=== PATIENT | male | born 1945 | race Caucasian/White ===

== ENCOUNTER 2018-07-30 12:13 | Inpatient (IN) | payer OTHER ==
[2018-07-30 14:01] LABS: ADD MAN DIFF? NO
[2018-07-30 14:07] LABS: WHITE BLOOD COUNT 11.8 10^3/ul (4.8-10.8)
[2018-07-30 14:07] LABS: BASOPHILS % 0.2 % (0.0-2.0); HEMATOCRIT 33.3 % (42.0-52.0); HEMOGLOBIN 10.7 g/dl (14.0-18.0); LYMPHOCYTES % 8.2 % (15.0-51.0); MEAN CORPUSCULAR HGB CONC 32.1 g/dl (32.0-37.0); MEAN CORPUSCULAR VOLUME 96.5 fl (82.0-101.0); MEAN PLATELET VOLUME 11.3 fl (7.4-10.4); MONOCYTES % 8.2 % (0.0-11.0); NEUTROPHIL # 9.8 10^3/ul (1.6-7.5); PLATELET COUNT 140 10^3/UL (140-415); RED BLOOD COUNT 3.45 10^6/ul (4.70-6.10); RED CELL DISTRIBUTION WIDTH 14.9 % (11.5-14.5)
[2018-07-30] MEDS: IPRATROPIUM (NEB) 0.5 MG/2.5 ML AMP HHN (14:12)
[2018-07-30] MEDS: LEVALBUTEROL (NEB) 1.25 MG/0.5 ML AMP HHN (14:12)
[2018-07-30] MEDS: ACETAMINOPHEN 325 MG TAB PO (14:23)
[2018-07-30] MEDS: SODIUM CHLORIDE 0.9% 1L BAG IV* (14:23)
[2018-07-30 14:28] LABS: PROTIME 13.3 Sec (11.9-14.9)
[2018-07-30 14:29] LABS: PARTIAL THROMBOPLASTIN TIME 31.3 Sec (23.0-35.0)
[2018-07-30 14:30] LABS: ANION GAP 17 (8-16); BLOOD UREA NITROGEN 47 mg/dl (7-20); CALCIUM 8.9 mg/dl (8.4-10.2); CARBON DIOXIDE 21 mmol/L (21-31); CHLORIDE 107 mmol/L (97-110); GLUCOSE 87 mg/dl (70-220); POTASSIUM 4.5 mmol/L (3.5-5.1); SODIUM 140 mmol/L (135-144)
[2018-07-30 14:31] LABS: LACTIC ACID 0.8 mmol/L (0.5-2.0)
[2018-07-30 14:46] LABS: TROPONIN-I 0.166 ng/ml (0.000-0.120)
[2018-07-30 15:17] LABS: ADD UMIC YES; UR ASCORBIC ACID 20 mg/dL (NEGATIVE); UR BILIRUBIN (Dip) NEGATIVE (NEGATIVE); UR BLOOD (Dip) NEGATIVE (NEGATIVE); UR CLARITY CLEAR (CLEAR); UR COLOR YELLOW (YELLOW); UR GLUCOSE (Dip) NEGATIVE (NEGATIVE); UR KETONES (Dip) TRACE mg/dL (NEGATIVE); UR LEUKOCYTE ESTERASE (Dip) NEGATIVE Leu/ul (NEGATIVE); UR NITRITE (Dip) NEGATIVE (NEGATIVE); UR RBC 3 /HPF (0-5); UR SPECIFIC GRAVITY (Dip) 1.013 (1.003-1.030); UR TOTAL PROTEIN (Dip) 3+ mg/dl (NEGATIVE); UR UROBILINOGEN (Dip) NEGATIVE (NEGATIVE); UR WBC 0 /HPF (0-5)
[2018-07-30] MEDS: ASPIRIN 81 MG TAB PO (16:15)
[2018-07-30] MEDS: PIPER-TAZO 2.25 GM (PMX) 50 ML IVPB (16:15)
[2018-07-30] MEDS ORDERED: ONDANSETRON 4 MG INJ IV (17:30)
[2018-07-30] MEDS ORDERED: NACL 0.9% 3 ML SYG IV (17:30)
[2018-07-30] MEDS: predniSONE 20 MG TAB PO (20:43)
[2018-07-30] MEDS: DOXAZOSIN 4 MG TAB PO (20:44)
[2018-07-30] MEDS: ALBUTEROL/IPRATROPIUM (NEB) 3 ML AMP NEB (22:46)
[2018-07-30 23:02] LABS: LACTIC ACID < 0.5 mmol/L (0.5-2.0)
[2018-07-31 05:25] LABS: ADD MAN DIFF? NO
[2018-07-31 05:32] LABS: WHITE BLOOD COUNT 7.2 10^3/ul (4.8-10.8)
[2018-07-31 05:32] LABS: ABNORMAL IP MESSAGE 1; BASOPHILS % 0.1 % (0.0-2.0); HEMATOCRIT 30.9 % (42.0-52.0); HEMOGLOBIN 9.8 g/dl (14.0-18.0); LYMPHOCYTES # 0.3 10^3/ul (0.8-2.9); LYMPHOCYTES % 4.2 % (15.0-51.0); MEAN CORPUSCULAR HEMOGLOBIN 31.1 pg (29.0-33.0); MEAN CORPUSCULAR HGB CONC 31.7 g/dl (32.0-37.0); MEAN CORPUSCULAR VOLUME 98.1 fl (82.0-101.0); MEAN PLATELET VOLUME 11.4 fl (7.4-10.4); MONOCYTE # 0.1 10^3/ul (0.3-0.9); MONOCYTES % 1.5 % (0.0-11.0); NEUTROPHIL # 6.8 10^3/ul (1.6-7.5); NEUTROPHILS % 93.8 % (39.0-77.0); PLATELET COUNT 126 10^3/UL (140-415); POSITIVE DIFF @See below; RED BLOOD COUNT 3.15 10^6/ul (4.70-6.10)
[2018-07-31 06:14] LABS: ALANINE AMINOTRANSFERASE 32 IU/L (13-69); ALBUMIN 2.7 g/dl (3.3-4.9); ALBUMIN/GLOBULIN RATIO 0.96; ALKALINE PHOSPHATASE 28 IU/L (42-121); ANION GAP 13 (8-16); ASPARTATE AMINO TRANSFERASE 32 IU/L (15-46); BILIRUBIN,INDIRECT 0.1 mg/dl (0-1.1); BILIRUBIN,TOTAL 0.1 mg/dl (0.2-1.3); BLOOD UREA NITROGEN 53 mg/dl (7-20); CALCIUM 8.3 mg/dl (8.4-10.2); CARBON DIOXIDE 21 mmol/L (21-31); CHLORIDE 109 mmol/L (97-110); CHOL/HDL RATIO 2.3 RATIO; CHOLESTEROL 110 mg/dl (100-200); CREATININE 4.04 mg/dl (0.61-1.24); GLUCOSE 158 mg/dl (70-220); HDL CHOLESTEROL 47 mg/dl (31-75); LDL CHOLESTEROL,CALCULATED 49 mg/dl; PHOSPHORUS 5.8 mg/dl (2.5-4.9); POTASSIUM 5.1 mmol/L (3.5-5.1); SODIUM 138 mmol/L (135-144); TOTAL PROTEIN 5.5 g/dl (6.1-8.1); TRIGLYCERIDES 69 mg/dl (0-149)
[2018-07-31] MEDS: LEVOTHYROXINE 150 MCG TAB PO (06:39)
[2018-07-31] MEDS: AZITHROMYCIN 250 MG TAB PO (08:45)
[2018-07-31] MEDS: PANTOPRAZOLE SODIUM 20 MG TABEC PO (08:45)
[2018-07-31] MEDS: FINASTERIDE 5 MG TAB PO (08:45)
[2018-07-31] MEDS: FLUTICASONE/VILANTEROL 200-25 INH DEVICE INH (08:46)
[2018-07-31] MEDS: AMLODIPINE 10 MG TAB PO (08:46)
[2018-07-31] MEDS: predniSONE 20 MG TAB PO (08:46)
[2018-07-31] MEDS: ALLOPURINOL 300 MG TAB PO (08:46)
[2018-07-31] MEDS: ENOXAPARIN 30 MG/0.3 ML SYG SC (08:56)
[2018-07-31 11:47] LABS: HEMOGLOBIN A1C 5.3 % (0-5.9)
[2018-07-31 15:03] LABS: ADD UMIC YES; UR ASCORBIC ACID 20 mg/dL (NEGATIVE); UR BACTERIA FEW /HPF (NONE SEEN); UR BILIRUBIN (Dip) NEGATIVE (NEGATIVE); UR BLOOD (Dip) NEGATIVE (NEGATIVE); UR CLARITY CLEAR (CLEAR); UR COLOR YELLOW (YELLOW); UR GLUCOSE (Dip) NEGATIVE (NEGATIVE); UR KETONES (Dip) NEGATIVE (NEGATIVE); UR LEUKOCYTE ESTERASE (Dip) NEGATIVE Leu/ul (NEGATIVE); UR NITRITE (Dip) NEGATIVE (NEGATIVE); UR RBC 2 /HPF (0-5); UR SPECIFIC GRAVITY (Dip) 1.014 (1.003-1.030); UR TOTAL PROTEIN (Dip) 2+ mg/dl (NEGATIVE); UR UROBILINOGEN (Dip) NEGATIVE (NEGATIVE); UR WBC 1 /HPF (0-5)
[2018-07-31 15:28] LABS: CREATININE,URINE RANDOM 121.72 mg/dl (20-370)
[2018-07-31 15:28] LABS: SODIUM,URINE RANDOM 29 mmol/L (30-90)
[2018-07-31] MEDS ORDERED: ALBUTEROL/IPRATROPIUM (NEB) 3 ML AMP (19:58)
[2018-07-31] MEDS: ALBUTEROL/IPRATROPIUM (NEB) 3 ML AMP NEB (20:05)
[2018-07-31] MEDS: DOXAZOSIN 4 MG TAB PO (20:36)
[2018-08-01] MEDS: ALBUTEROL/IPRATROPIUM (NEB) 3 ML AMP NEB ×6 (00:13→20:18)
[2018-08-01 05:37] LABS: ADD MAN DIFF? NO
[2018-08-01 05:46] LABS: HEMATOCRIT 27.8 % (42.0-52.0); HEMOGLOBIN 8.9 g/dl (14.0-18.0); LYMPHOCYTES # 0.7 10^3/ul (0.8-2.9); LYMPHOCYTES % 11.6 % (15.0-51.0); MEAN CORPUSCULAR VOLUME 96.9 fl (82.0-101.0); MEAN PLATELET VOLUME 11.8 fl (7.4-10.4); MONOCYTE # 0.5 10^3/ul (0.3-0.9); MONOCYTES % 7.5 % (0.0-11.0); NEUTROPHIL # 5.1 10^3/ul (1.6-7.5); NEUTROPHILS % 80.6 % (39.0-77.0); PLATELET COUNT 124 10^3/UL (140-415); RED BLOOD COUNT 2.87 10^6/ul (4.70-6.10); RED CELL DISTRIBUTION WIDTH 14.6 % (11.5-14.5)
[2018-08-01 05:46] LABS: WHITE BLOOD COUNT 6.3 10^3/ul (4.8-10.8)
[2018-08-01 06:22] LABS: ANION GAP 13 (8-16); BLOOD UREA NITROGEN 71 mg/dl (7-20); CALCIUM 8.1 mg/dl (8.4-10.2); CARBON DIOXIDE 21 mmol/L (21-31); CHLORIDE 107 mmol/L (97-110); CREATININE 3.94 mg/dl (0.61-1.24); GLUCOSE 111 mg/dl (70-220); PHOSPHORUS 5.1 mg/dl (2.5-4.9); SODIUM 136 mmol/L (135-144)
[2018-08-01] MEDS: LEVOTHYROXINE 150 MCG TAB PO (06:31)
[2018-08-01] MEDS: SOD CHLORIDE 0.9% 1,000 ML IV (08:45)
[2018-08-01] MEDS: FINASTERIDE 5 MG TAB PO (08:47)
[2018-08-01] MEDS: PANTOPRAZOLE SODIUM 20 MG TABEC PO (08:47)
[2018-08-01] MEDS: AZITHROMYCIN 250 MG TAB PO (08:48)
[2018-08-01] MEDS: AMLODIPINE 10 MG TAB PO (08:48)
[2018-08-01] MEDS: ALLOPURINOL 300 MG TAB PO (08:48)
[2018-08-01] MEDS: predniSONE 20 MG TAB PO (08:48)
[2018-08-01] MEDS: ENOXAPARIN 30 MG/0.3 ML SYG SC (08:58)
[2018-08-01] MEDS: ACETAMINOPHEN 325 MG TAB PO (09:03)
[2018-08-01] MEDS: FLUTICASONE/VILANTEROL 200-25 INH DEVICE INH (09:03)
[2018-08-01] MEDS: FENOFIBRATE 145 MG TAB PO (14:14)
[2018-08-01] MEDS: LEVOFLOXACIN 500 MG TAB PO (14:14)
[2018-08-01 14:18] LABS: CREATINE KINASE 106 IU/L (23-200)
[2018-08-01 14:30] LABS: CK-MB 3.14 ng/ml (0.0-2.4); TROPONIN-I 0.039 ng/ml (0.000-0.120)
[2018-08-01 15:21] LABS: B-TYPE NATRIURETIC PEPTIDE 5100 PG/ML (0-125)
[2018-08-01 17:06] LABS: CREATININE, RANDOM URINE 117 mg/dL (20-320); MICROALBUMIN 137.9 mg/dL; MICROALBUMIN/CREATININE RATIO 1179 (<30)
[2018-08-01] MEDS: DOXAZOSIN 4 MG TAB PO (22:28)
[2018-08-02] MEDS: ALBUTEROL/IPRATROPIUM (NEB) 3 ML AMP NEB ×6 (01:32→20:29)
[2018-08-02 05:39] LABS: ADD MAN DIFF? NO
[2018-08-02 05:47] LABS: WHITE BLOOD COUNT 5.7 10^3/ul (4.8-10.8)
[2018-08-02 05:47] LABS: HEMATOCRIT 27.2 % (42.0-52.0); HEMOGLOBIN 8.8 g/dl (14.0-18.0); LYMPHOCYTES # 0.6 10^3/ul (0.8-2.9); LYMPHOCYTES % 10.6 % (15.0-51.0); MEAN CORPUSCULAR HEMOGLOBIN 31.2 pg (29.0-33.0); MEAN CORPUSCULAR HGB CONC 32.4 g/dl (32.0-37.0); MEAN CORPUSCULAR VOLUME 96.5 fl (82.0-101.0); MEAN PLATELET VOLUME 12.2 fl (7.4-10.4); MONOCYTE # 0.3 10^3/ul (0.3-0.9); NEUTROPHIL # 4.7 10^3/ul (1.6-7.5); PLATELET COUNT 127 10^3/UL (140-415); RED BLOOD COUNT 2.82 10^6/ul (4.70-6.10); RED CELL DISTRIBUTION WIDTH 14.6 % (11.5-14.5)
[2018-08-02] MEDS: LEVOFLOXACIN 250 MG TAB PO (05:47)
[2018-08-02] MEDS: LEVOTHYROXINE 125 MCG TAB PO (05:47)
[2018-08-02 06:03] LABS: ANION GAP 14 (8-16); BLOOD UREA NITROGEN 71 mg/dl (7-20); CALCIUM 8.3 mg/dl (8.4-10.2); CARBON DIOXIDE 19 mmol/L (21-31); CHLORIDE 107 mmol/L (97-110); CREATININE 3.78 mg/dl (0.61-1.24); GLUCOSE 114 mg/dl (70-220); MAGNESIUM 1.8 mg/dl (1.7-2.5); POTASSIUM 4.8 mmol/L (3.5-5.1); SODIUM 135 mmol/L (135-144)
[2018-08-02 06:04] LABS: CREATINE KINASE 108 IU/L (23-200)
[2018-08-02 06:15] LABS: CK INDEX 3.4; CK-MB 3.68 ng/ml (0.0-2.4); TROPONIN-I 0.046 ng/ml (0.000-0.120)
[2018-08-02] MEDS: FENOFIBRATE 145 MG TAB PO (08:07)
[2018-08-02] MEDS: ALLOPURINOL 300 MG TAB PO (08:07)
[2018-08-02] MEDS: FINASTERIDE 5 MG TAB PO (08:07)
[2018-08-02] MEDS: FLUTICASONE/VILANTEROL 200-25 INH DEVICE INH (08:08)
[2018-08-02] MEDS: predniSONE 20 MG TAB PO (08:08)
[2018-08-02] MEDS: AMLODIPINE 10 MG TAB PO (08:08)
[2018-08-02] MEDS: ASPIRIN 325 MG TAB PO (08:08)
[2018-08-02] MEDS: PANTOPRAZOLE SODIUM 20 MG TABEC PO (08:08)
[2018-08-02] MEDS: ENOXAPARIN 30 MG/0.3 ML SYG SC (08:13)
[2018-08-02] MEDS: FUROSEMIDE 40 MG INJ IV (12:34)
[2018-08-02] MEDS: ACETAMINOPHEN 325 MG TAB PO (13:37)
[2018-08-02] MEDS: METHYLPREDNISOLONE 40 MG INJ IV ×2 (15:06→21:17)
[2018-08-02] MEDS: DOXAZOSIN 4 MG TAB PO (21:16)
[2018-08-02] MEDS ORDERED: DIGOXIN 500 MCG INJ IV (23:00)
[2018-08-02] MEDS: METOPROLOL 5 MG INJ IV (23:46)
[2018-08-02] MEDS: METOPROLOL 25 MG TAB PO (23:51)
[2018-08-02] MEDS: DIGOXIN 500 MCG INJ IV (23:54)
[2018-08-03] MEDS: METOPROLOL 5 MG INJ IV ×3 (00:25→10:02)
[2018-08-03] MEDS: ALBUTEROL/IPRATROPIUM (NEB) 3 ML AMP NEB ×5 (00:30→20:21)
[2018-08-03] MEDS: LEVOFLOXACIN 250MG/D5W (PMX) 50 ML IVPB (05:37)
[2018-08-03 05:43] LABS: ADD MAN DIFF? NO
[2018-08-03 05:46] LABS: ABNORMAL IP MESSAGE 1; HEMATOCRIT 29.5 % (42.0-52.0); HEMOGLOBIN 9.5 g/dl (14.0-18.0); LYMPHOCYTES # 0.5 10^3/ul (0.8-2.9); LYMPHOCYTES % 10.5 % (15.0-51.0); MEAN CORPUSCULAR HGB CONC 32.2 g/dl (32.0-37.0); MEAN CORPUSCULAR VOLUME 96.4 fl (82.0-101.0); MEAN PLATELET VOLUME 11.3 fl (7.4-10.4); MONOCYTE # 0.2 10^3/ul (0.3-0.9); MONOCYTES % 4.5 % (0.0-11.0); NEUTROPHIL # 3.8 10^3/ul (1.6-7.5); NEUTROPHILS % 84.1 % (39.0-77.0); PLATELET COUNT 138 10^3/UL (140-415); POSITIVE DIFF @See below; RED BLOOD COUNT 3.06 10^6/ul (4.70-6.10); RED CELL DISTRIBUTION WIDTH 14.7 % (11.5-14.5)
[2018-08-03 05:46] LABS: WHITE BLOOD COUNT 4.5 10^3/ul (4.8-10.8)
[2018-08-03] MEDS: METHYLPREDNISOLONE 40 MG INJ IV ×3 (05:51→22:18)
[2018-08-03 06:08] LABS: IRON 72 ug/dl (35-150)
[2018-08-03 06:15] LABS: ANION GAP 15 (8-16); BLOOD UREA NITROGEN 81 mg/dl (7-20); CARBON DIOXIDE 18 mmol/L (21-31); CHLORIDE 110 mmol/L (97-110); CREATININE 3.94 mg/dl (0.61-1.24); GLUCOSE 106 mg/dl (70-220); MAGNESIUM 1.7 mg/dl (1.7-2.5); PHOSPHORUS 5.5 mg/dl (2.5-4.9); POTASSIUM 5.6 mmol/L (3.5-5.1); SODIUM 137 mmol/L (135-144)
[2018-08-03 06:17] LABS: % IRON SATURATION 25 % SAT (22-52); TOTAL IRON BINDING CAPACITY 291 ug/dl (241-421)
[2018-08-03] MEDS: LEVOTHYROXINE 125 MCG TAB PO (06:33)
[2018-08-03] MEDS: FLUTICASONE/VILANTEROL 200-25 INH DEVICE INH (08:36)
[2018-08-03] MEDS: AMLODIPINE 10 MG TAB PO (08:41)
[2018-08-03] MEDS: FENOFIBRATE 145 MG TAB PO (08:41)
[2018-08-03] MEDS: ALLOPURINOL 300 MG TAB PO (08:41)
[2018-08-03] MEDS: FINASTERIDE 5 MG TAB PO (08:41)
[2018-08-03] MEDS: FUROSEMIDE 40 MG INJ IV (08:42)
[2018-08-03] MEDS: ASPIRIN (EC) 325 MG TAB PO (08:42)
[2018-08-03] MEDS: METOPROLOL 25 MG TAB PO (08:42)
[2018-08-03] MEDS: PANTOPRAZOLE SODIUM 20 MG TABEC PO (08:42)
[2018-08-03] MEDS: ENOXAPARIN 30 MG/0.3 ML SYG SC (08:55)
[2018-08-03] MEDS ORDERED: ASPIRIN 325 MG TAB PO (09:00)
[2018-08-03] MEDS ORDERED: DILTIAZEM 25 MG INJ IV (13:00)
[2018-08-03] MEDS: DIGOXIN 500 MCG INJ IV (13:51)
[2018-08-03] MEDS: NA BICARBONATE 650 MG TAB PO ×2 (13:51→22:18)
[2018-08-03 15:20] LABS: POTASSIUM 5.2 mmol/L (3.5-5.1)
[2018-08-03] MEDS: DOXAZOSIN 4 MG TAB PO (21:05)
[2018-08-03] MEDS: METOPROLOL 50 MG TAB PO (21:07)
[2018-08-04] MEDS: ALBUTEROL/IPRATROPIUM (NEB) 3 ML AMP NEB ×4 (03:18→20:13)
[2018-08-04] MEDS: NA BICARBONATE 650 MG TAB PO ×3 (05:53→22:31)
[2018-08-04] MEDS: METHYLPREDNISOLONE 40 MG INJ IV ×2 (05:55→22:31)
[2018-08-04 06:11] LABS: ADD MAN DIFF? NO
[2018-08-04 06:17] LABS: ABNORMAL IP MESSAGE 1; HEMATOCRIT 29.6 % (42.0-52.0); HEMOGLOBIN 9.7 g/dl (14.0-18.0); LYMPHOCYTES # 0.5 10^3/ul (0.8-2.9); LYMPHOCYTES % 7.6 % (15.0-51.0); MEAN CORPUSCULAR HEMOGLOBIN 31.3 pg (29.0-33.0); MEAN CORPUSCULAR HGB CONC 32.8 g/dl (32.0-37.0); MEAN CORPUSCULAR VOLUME 95.5 fl (82.0-101.0); MEAN PLATELET VOLUME 11.4 fl (7.4-10.4); MONOCYTE # 0.2 10^3/ul (0.3-0.9); MONOCYTES % 2.7 % (0.0-11.0); NEUTROPHIL # 5.5 10^3/ul (1.6-7.5); NEUTROPHILS % 88.4 % (39.0-77.0); PLATELET COUNT 144 10^3/UL (140-415); POSITIVE DIFF @See below; RED CELL DISTRIBUTION WIDTH 14.5 % (11.5-14.5)
[2018-08-04 06:17] LABS: WHITE BLOOD COUNT 6.2 10^3/ul (4.8-10.8)
[2018-08-04] MEDS: LEVOFLOXACIN 250MG/D5W (PMX) 50 ML IVPB (06:30)
[2018-08-04] MEDS: LEVOTHYROXINE 125 MCG TAB PO (06:33)
[2018-08-04 06:44] LABS: ANION GAP 17 (8-16); BLOOD UREA NITROGEN 98 mg/dl (7-20); CALCIUM 8.9 mg/dl (8.4-10.2); CARBON DIOXIDE 19 mmol/L (21-31); CHLORIDE 107 mmol/L (97-110); CREATININE 4.22 mg/dl (0.61-1.24); GLUCOSE 122 mg/dl (70-220); MAGNESIUM 1.7 mg/dl (1.7-2.5); PHOSPHORUS 5.8 mg/dl (2.5-4.9); POTASSIUM 5.9 mmol/L (3.5-5.1); SODIUM 137 mmol/L (135-144)
[2018-08-04] MEDS: METOPROLOL 50 MG TAB PO (08:11)
[2018-08-04] MEDS: PANTOPRAZOLE SODIUM 20 MG TABEC PO (08:11)
[2018-08-04] MEDS: FINASTERIDE 5 MG TAB PO (08:11)
[2018-08-04] MEDS: ALLOPURINOL 300 MG TAB PO (08:11)
[2018-08-04] MEDS: AMLODIPINE 10 MG TAB PO (08:12)
[2018-08-04] MEDS: ASPIRIN (EC) 325 MG TAB PO (08:12)
[2018-08-04] MEDS: FUROSEMIDE 40 MG INJ IV (08:12)
[2018-08-04] MEDS: FLUTICASONE/VILANTEROL 200-25 INH DEVICE INH (08:13)
[2018-08-04] MEDS: FENOFIBRATE 145 MG TAB PO (08:13)
[2018-08-04] MEDS: ENOXAPARIN 80 MG/0.8 ML SYG SC (08:20)
[2018-08-04] MEDS: TIOTROPIUM 18 MCG CAPSULE INHA DEV INH (11:42)
[2018-08-04] MEDS: DIGOXIN 0.25 MG TAB PO (11:42)
[2018-08-04] MEDS: CALCIUM CARBONATE 750 MG CHEW TAB PO ×2 (11:42→18:04)
[2018-08-04] MEDS: NA POLYST SULFON 15 GM/60 ML BTL PO (11:43)
[2018-08-04] MEDS: CITRIC ACID/NA CITRATE 30 ML CUP PO ×2 (13:04→22:30)
[2018-08-04 14:02] LABS: ANION GAP 17 (8-16); BLOOD UREA NITROGEN 100 mg/dl (7-20); CALCIUM 8.7 mg/dl (8.4-10.2); CARBON DIOXIDE 17 mmol/L (21-31); CHLORIDE 107 mmol/L (97-110); CREATININE 4.24 mg/dl (0.61-1.24); GLUCOSE 220 mg/dl (70-220); SODIUM 136 mmol/L (135-144)
[2018-08-04] MEDS: MONTELUKAST 10 MG TAB PO (22:31)
[2018-08-04] MEDS: METOPROLOL 100 MG TAB PO (22:32)
[2018-08-04] MEDS: DOXAZOSIN 4 MG TAB PO (22:32)
[2018-08-05] MEDS: ALBUTEROL/IPRATROPIUM (NEB) 3 ML AMP NEB ×4 (01:01→19:43)
[2018-08-05] MEDS: LEVOFLOXACIN 250MG/D5W (PMX) 50 ML IVPB (06:19)
[2018-08-05] MEDS: LEVOTHYROXINE 112 MCG TAB PO (06:19)
[2018-08-05] MEDS: CITRIC ACID/NA CITRATE 30 ML CUP PO ×3 (06:19→21:17)
[2018-08-05] MEDS: NA BICARBONATE 650 MG TAB PO ×3 (06:19→21:17)
[2018-08-05] MEDS: PANTOPRAZOLE SODIUM 20 MG TABEC PO (06:19)
[2018-08-05 06:28] LABS: ANION GAP 15 (8-16); BLOOD UREA NITROGEN 112 mg/dl (7-20); CALCIUM 8.2 mg/dl (8.4-10.2); CARBON DIOXIDE 21 mmol/L (21-31); CHLORIDE 107 mmol/L (97-110); CREATININE 4.78 mg/dl (0.61-1.24); GLUCOSE 180 mg/dl (70-220); POTASSIUM 5.3 mmol/L (3.5-5.1); SODIUM 138 mmol/L (135-144)
[2018-08-05] MEDS: METHYLPREDNISOLONE 40 MG INJ IV ×2 (07:55→21:17)
[2018-08-05] MEDS: ALLOPURINOL 300 MG TAB PO (07:55)
[2018-08-05] MEDS: CALCIUM CARBONATE 750 MG CHEW TAB PO ×3 (07:55→17:16)
[2018-08-05] MEDS: ASPIRIN (EC) 325 MG TAB PO (07:55)
[2018-08-05] MEDS: FUROSEMIDE 40 MG INJ IV (07:55)
[2018-08-05] MEDS: FENOFIBRATE 145 MG TAB PO (07:55)
[2018-08-05] MEDS: FINASTERIDE 5 MG TAB PO (07:55)
[2018-08-05] MEDS: FLUTICASONE/VILANTEROL 200-25 INH DEVICE INH (07:56)
[2018-08-05] MEDS: AMLODIPINE 10 MG TAB PO (07:56)
[2018-08-05] MEDS: METOPROLOL 100 MG TAB PO ×2 (07:56→21:18)
[2018-08-05] MEDS: TIOTROPIUM 18 MCG CAPSULE INHA DEV INH (07:57)
[2018-08-05] MEDS: ENOXAPARIN 80 MG/0.8 ML SYG SC (08:05)
[2018-08-05] MEDS: NA POLYST SULFON 15 GM/60 ML BTL PO (09:45)
[2018-08-05] MEDS: MONTELUKAST 10 MG TAB PO (21:18)
[2018-08-05] MEDS: DOXAZOSIN 4 MG TAB PO (21:19)
[2018-08-06] MEDS: ALBUTEROL/IPRATROPIUM (NEB) 3 ML AMP NEB ×3 (02:02→14:02)
[2018-08-06 05:41] LABS: ANION GAP 12 (8-16); CALCIUM 8.2 mg/dl (8.4-10.2); CARBON DIOXIDE 27 mmol/L (21-31); CHLORIDE 105 mmol/L (97-110); CREATININE 4.55 mg/dl (0.61-1.24); GLUCOSE 152 mg/dl (70-220); POTASSIUM 4.4 mmol/L (3.5-5.1); SODIUM 140 mmol/L (135-144)
[2018-08-06 05:49] LABS: BLOOD UREA NITROGEN 121 mg/dl (7-20)
[2018-08-06] MEDS: LEVOFLOXACIN 250MG/D5W (PMX) 50 ML IVPB (06:00)
[2018-08-06] MEDS: CITRIC ACID/NA CITRATE 30 ML CUP PO ×2 (06:00→14:27)
[2018-08-06] MEDS: NA BICARBONATE 650 MG TAB PO ×2 (06:00→12:47)
[2018-08-06] MEDS: LEVOTHYROXINE 112 MCG TAB PO (06:05)
[2018-08-06] MEDS: PANTOPRAZOLE SODIUM 20 MG TABEC PO (06:46)
[2018-08-06] MEDS: ASPIRIN (EC) 325 MG TAB PO (09:15)
[2018-08-06] MEDS: METHYLPREDNISOLONE 40 MG INJ IV (09:15)
[2018-08-06] MEDS: FINASTERIDE 5 MG TAB PO (09:15)
[2018-08-06] MEDS: CALCIUM CARBONATE 750 MG CHEW TAB PO ×2 (09:15→12:47)
[2018-08-06] MEDS: FENOFIBRATE 145 MG TAB PO (09:15)
[2018-08-06] MEDS: FUROSEMIDE 40 MG INJ IV (09:15)
[2018-08-06] MEDS: ALLOPURINOL 300 MG TAB PO (09:15)
[2018-08-06] MEDS: AMLODIPINE 10 MG TAB PO (09:16)
[2018-08-06] MEDS: METOPROLOL 100 MG TAB PO (09:17)
[2018-08-06] MEDS: TIOTROPIUM 18 MCG CAPSULE INHA DEV INH (09:18)
[2018-08-06] MEDS: FLUTICASONE/VILANTEROL 200-25 INH DEVICE INH (09:18)
[2018-08-06] MEDS: ENOXAPARIN 80 MG/0.8 ML SYG SC (09:26)
[2018-08-07] MEDS ORDERED: predniSONE 20 MG TAB PO (09:00)
[2018-08-07] MEDS ORDERED: APIXABAN 5 MG TABLET PO (09:00)
[2018-08-07 14:36] LABS: NIL 0.01 IU/mL; QUANTIFERON(R)-TB GOLD NEGATIVE (NEGATIVE)
[2018-08-08] MEDS ORDERED: LEVOFLOXACIN 250 MG TAB PO (06:00)
== END 2018-08-06 19:19 | DRG 871 ==
LOC: 6WM 07-31 21:55 → E/R 12:13 → 6WM 16:03
DX: A41.9 Sepsis, unspecified organism (principal); J18.8 Other pneumonia, unspecified organism; J96.01 Acute respiratory failure with hypoxia; I21.A1 Myocardial infarction type 2; N17.0 Acute kidney failure with tubular necrosis; J44.1 Chronic obstructive pulmonary disease with (acute) exacerbation; I12.0 Hypertensive chronic kidney disease with stage 5 chronic kidney disease or end stage renal disease; N18.5 Chronic kidney disease, stage 5; N39.0 Urinary tract infection, site not specified; E87.2 Acidosis; K21.9 Gastro-esophageal reflux disease without esophagitis; E03.9 Hypothyroidism, unspecified; D63.1 Anemia in chronic kidney disease; I25.10 Atherosclerotic heart disease of native coronary artery without angina pectoris; E78.5 Hyperlipidemia, unspecified; R82.71 Bacteriuria; K74.60 Unspecified cirrhosis of liver; R65.20 Severe sepsis without septic shock; E87.70 Fluid overload, unspecified; J40 Bronchitis, not specified as acute or chronic; N40.0 Benign prostatic hyperplasia without lower urinary tract symptoms; G47.30 Sleep apnea, unspecified; R51 Headache
CPT/HCPCS: 36415; 70450; 71045; 71250; 80048; 80053; 80061; 81001; 81003; 82043; 82550; 82553; 83036; 83540; 83605; 83735; 83880; 84100; 84132; 84155; 84300; 84439; 84443; 84484; 85025; 85610; 85730; 86480; 87040; 87086; 93005; 93306; 94640; 94664; 99285-25

== ENCOUNTER 2018-10-25 11:17 | Inpatient (IN) | payer OTHER ==
[2018-10-25 12:22] LABS: ADD MAN DIFF? NO
[2018-10-25 12:25] LABS: WHITE BLOOD COUNT 12.1 10^3/ul (4.8-10.8)
[2018-10-25 12:25] LABS: BASOPHIL # 0.1 10^3/ul (0.0-0.1); BASOPHILS % 0.9 % (0.0-2.0); EOSINOPHILS # 0.2 10^3/ul (0.0-0.5); EOSINOPHILS % 1.4 % (0.0-7.0); HEMATOCRIT 30.6 % (42.0-52.0); HEMOGLOBIN 9.6 g/dl (14.0-18.0); LYMPHOCYTES # 1.9 10^3/ul (0.8-2.9); LYMPHOCYTES % 15.6 % (15.0-51.0); MEAN CORPUSCULAR HEMOGLOBIN 29.7 pg (29.0-33.0); MEAN CORPUSCULAR HGB CONC 31.4 g/dl (32.0-37.0); MEAN CORPUSCULAR VOLUME 94.7 fl (82.0-101.0); MEAN PLATELET VOLUME 10.1 fl (7.4-10.4); MONOCYTE # 0.8 10^3/ul (0.3-0.9); MONOCYTES % 6.7 % (0.0-11.0); NEUTROPHIL # 8.5 10^3/ul (1.6-7.5); NEUTROPHILS % 70.8 % (39.0-77.0); PLATELET COUNT 254 10^3/UL (140-415); RED BLOOD COUNT 3.23 10^6/ul (4.70-6.10); RED CELL DISTRIBUTION WIDTH 14.4 % (11.5-14.5)
[2018-10-25 12:40] LABS: ANION GAP 11 (5-13); BLOOD UREA NITROGEN 82 mg/dl (7-20); CALCIUM 8.8 mg/dl (8.4-10.2); CARBON DIOXIDE 30 mmol/L (21-31); CHLORIDE 102 mmol/L (97-110); CREATININE 3.65 mg/dl (0.61-1.24); GLUCOSE 129 mg/dl (70-220); POTASSIUM 4.1 mmol/L (3.5-5.1); SODIUM 143 mmol/L (135-144)
[2018-10-25] MEDS ORDERED: ONDANSETRON 4 MG INJ IV (15:30)
[2018-10-25] MEDS ORDERED: ACETAMINOPHEN 325 MG TAB PO (15:30)
[2018-10-25] MEDS ORDERED: NACL 0.9% 3 ML SYG IV (16:00)
[2018-10-25] MEDS ORDERED: METOPROLOL 5 MG INJ IV (16:00)
[2018-10-25] MEDS: DIGOXIN 500 MCG INJ IV (16:46)
[2018-10-25] MEDS ORDERED: IPRATROPIUM (NEB) 0.5 MG/2.5 ML AMP HHN (17:00)
[2018-10-25] MEDS ORDERED: BISACODYL 10 MG SUPP PR (17:00)
[2018-10-25] MEDS: DILTIAZEM 25 MG INJ IV (17:01)
[2018-10-25] MEDS: INSULIN ASPART [NOVOLOG] 3 ML PEN SC ×2 (17:28→21:00)
[2018-10-25] MEDS ORDERED: DEXTROSE 50% 50 ML SYRINGE IV ×2 (17:30)
[2018-10-25] MEDS ORDERED: GLUCOSE GEL 15 GRAM TUBE PO ×2 (17:30)
[2018-10-25] MEDS ORDERED: GLUCAGON 1 MG INJ IM (17:30)
[2018-10-25] MEDS ORDERED: GLUCOSE GEL 15 GRAM TUBE BUCCAL (17:30)
[2018-10-25 18:51] LABS: HEMOGLOBIN A1C 5.8 % (0-5.9)
[2018-10-25 19:01] LABS: CREATINE KINASE 30 IU/L (23-200)
[2018-10-25 19:05] LABS: URIC ACID 6.3 mg/dl (3.1-7.9)
[2018-10-25 19:15] LABS: CK INDEX 1.7; CK-MB 0.51 ng/ml (0.0-2.4); TROPONIN-I 0.025 ng/ml (0.000-0.120)
[2018-10-25 19:31] LABS: FREE T4 (FREE THYROXINE) 0.96 ng/dl (0.78-2.44)
[2018-10-25] MEDS: BUDESONIDE (NEB) 0.5MG/2ML AMP NEB (20:52)
[2018-10-25] MEDS: IPRATROPIUM (NEB) 0.5 MG/2.5 ML AMP HHN (21:00)
[2018-10-25] MEDS ORDERED: TACROLIMUS 0.5 MG CAP PO (21:00)
[2018-10-25] MEDS: METOPROLOL 50 MG TAB PO (21:26)
[2018-10-25] MEDS: HEPARIN 5,000 UNIT/1 ML VIAL SC (21:36)
[2018-10-26 01:33] LABS: CREATINE KINASE 22 IU/L (23-200)
[2018-10-26 01:45] LABS: CK INDEX 1.9
[2018-10-26 01:48] LABS: TROPONIN-I 0.029 ng/ml (0.000-0.120)
[2018-10-26 01:52] LABS: CK-MB 0.42 ng/ml (0.0-2.4)
[2018-10-26 05:18] LABS: ADD MAN DIFF? NO
[2018-10-26 05:33] LABS: BASOPHIL # 0.1 10^3/ul (0.0-0.1); EOSINOPHILS # 0.2 10^3/ul (0.0-0.5); EOSINOPHILS % 1.6 % (0.0-7.0); HEMATOCRIT 30.6 % (42.0-52.0); HEMOGLOBIN 9.6 g/dl (14.0-18.0); LYMPHOCYTES # 2.7 10^3/ul (0.8-2.9); LYMPHOCYTES % 25.8 % (15.0-51.0); MEAN CORPUSCULAR HEMOGLOBIN 29.6 pg (29.0-33.0); MEAN CORPUSCULAR HGB CONC 31.4 g/dl (32.0-37.0); MEAN CORPUSCULAR VOLUME 94.4 fl (82.0-101.0); MEAN PLATELET VOLUME 10.5 fl (7.4-10.4); MONOCYTE # 0.8 10^3/ul (0.3-0.9); MONOCYTES % 7.4 % (0.0-11.0); NEUTROPHIL # 6.3 10^3/ul (1.6-7.5); NEUTROPHILS % 59.8 % (39.0-77.0); PLATELET COUNT 268 10^3/UL (140-415); RED BLOOD COUNT 3.24 10^6/ul (4.70-6.10); RED CELL DISTRIBUTION WIDTH 14.5 % (11.5-14.5)
[2018-10-26 05:33] LABS: WHITE BLOOD COUNT 10.5 10^3/ul (4.8-10.8)
[2018-10-26 05:51] LABS: INR 1.01; PROTIME 13.4 Sec (11.9-14.9)
[2018-10-26 05:52] LABS: PARTIAL THROMBOPLASTIN TIME 26.6 Sec (23.0-35.0)
[2018-10-26 06:00] LABS: CHOLESTEROL 240 mg/dl (100-200)
[2018-10-26 06:00] LABS: CHOL/HDL RATIO 4.8 RATIO; HDL CHOLESTEROL 50 mg/dl (31-75); LDL CHOLESTEROL,CALCULATED 156 mg/dl; TRIGLYCERIDES 171 mg/dl (0-149)
[2018-10-26 06:16] LABS: PHOSPHORUS 4.7 mg/dl (2.5-4.9)
[2018-10-26 06:16] LABS: MAGNESIUM 1.9 mg/dl (1.7-2.5)
[2018-10-26 06:19] LABS: CK-MB 0.38 ng/ml (0.0-2.4); TROPONIN-I 0.031 ng/ml (0.000-0.120)
[2018-10-26 06:23] LABS: ALANINE AMINOTRANSFERASE 31 IU/L (13-69); ALBUMIN 3.4 g/dl (3.3-4.9); ALBUMIN/GLOBULIN RATIO 1.25; ALKALINE PHOSPHATASE 41 IU/L (42-121); ANION GAP 12 (5-13); ASPARTATE AMINO TRANSFERASE 20 IU/L (15-46); BLOOD UREA NITROGEN 82 mg/dl (7-20); CALCIUM 9.2 mg/dl (8.4-10.2); CARBON DIOXIDE 30 mmol/L (21-31); CHLORIDE 103 mmol/L (97-110); CREATININE 3.64 mg/dl (0.61-1.24); GLUCOSE 88 mg/dl (70-220); POTASSIUM 4.3 mmol/L (3.5-5.1); SODIUM 145 mmol/L (135-144); TOTAL PROTEIN 6.1 g/dl (6.1-8.1)
[2018-10-26] MEDS: LEVOTHYROXINE 150 MCG TAB PO (06:38)
[2018-10-26 06:39] LABS: CK INDEX 1.7; CREATINE KINASE 22 IU/L (23-200)
[2018-10-26] MEDS: HEPARIN 5,000 UNIT/1 ML VIAL SC ×2 (06:43→14:00)
[2018-10-26] MEDS: INSULIN ASPART [NOVOLOG] 3 ML PEN SC ×3 (08:00→18:00)
[2018-10-26] MEDS: METOPROLOL 50 MG TAB PO (08:18)
[2018-10-26] MEDS: AMLODIPINE 10 MG TAB PO (08:18)
[2018-10-26] MEDS: MULTIVIT/CA CARB/B CMPLX/FA TAB PO (08:19)
[2018-10-26] MEDS: ASPIRIN 325 MG TAB PO (08:19)
[2018-10-26] MEDS: ALLOPURINOL 300 MG TAB PO (08:20)
[2018-10-26] MEDS: BUDESONIDE (NEB) 0.5MG/2ML AMP NEB ×2 (08:33→20:00)
[2018-10-26] MEDS: IPRATROPIUM (NEB) 0.5 MG/2.5 ML AMP HHN ×4 (08:33→20:43)
[2018-10-26 13:23] LABS: HEPATITIS B SURFACE ANTIGEN NEGATIVE (NEGATIVE)
[2018-10-26] MEDS: HYDROCODONE/APAP (5/325) TAB PO (18:51)
[2018-10-26] MEDS ORDERED: ALBUMIN HUMAN 25% 100 ML IV (20:30)
[2018-10-26 22:14] LABS: HEPATITIS B SURFACE ANTIBODY NEGATIVE (NEGATIVE)
[2018-10-26] MEDS: METOPROLOL 25 MG TAB PO (23:09)
[2018-10-27] MEDS: HEPARIN 1000 UNITS/ML 10 ML INJ CATHETER (00:01)
[2018-10-27] MEDS: INSULIN ASPART [NOVOLOG] 3 ML PEN SC ×4 (00:04→17:27)
[2018-10-27] MEDS: ATORVASTATIN 20 MG TAB PO (00:05)
[2018-10-27] MEDS: HEPARIN 5,000 UNIT/1 ML VIAL SC ×2 (00:12→06:39)
[2018-10-27] MEDS: ONDANSETRON 4 MG INJ IV (04:19)
[2018-10-27] MEDS: ACETAMINOPHEN 325 MG TAB PO (04:26)
[2018-10-27] MEDS: LEVOTHYROXINE 150 MCG TAB PO (06:32)
[2018-10-27] MEDS: ASPIRIN 325 MG TAB PO (08:07)
[2018-10-27] MEDS: MULTIVIT/CA CARB/B CMPLX/FA TAB PO (08:08)
[2018-10-27] MEDS: AMLODIPINE 10 MG TAB PO (08:08)
[2018-10-27] MEDS: METOPROLOL 25 MG TAB PO (08:08)
[2018-10-27] MEDS: ALLOPURINOL 300 MG TAB PO (08:09)
[2018-10-27 08:19] LABS: ADD MAN DIFF? NO
[2018-10-27 08:28] LABS: BASOPHIL # 0.1 10^3/ul (0.0-0.1); BASOPHILS % 1.2 % (0.0-2.0); EOSINOPHILS # 0.3 10^3/ul (0.0-0.5); EOSINOPHILS % 2.1 % (0.0-7.0); HEMATOCRIT 35.8 % (42.0-52.0); HEMOGLOBIN 11.2 g/dl (14.0-18.0); LYMPHOCYTES # 2.7 10^3/ul (0.8-2.9); MEAN CORPUSCULAR HEMOGLOBIN 30.1 pg (29.0-33.0); MEAN CORPUSCULAR HGB CONC 31.3 g/dl (32.0-37.0); MEAN CORPUSCULAR VOLUME 96.2 fl (82.0-101.0); MEAN PLATELET VOLUME 10.7 fl (7.4-10.4); MONOCYTES % 8.2 % (0.0-11.0); NEUTROPHIL # 7.1 10^3/ul (1.6-7.5); NEUTROPHILS % 60.5 % (39.0-77.0); PLATELET COUNT 262 10^3/UL (140-415); RED BLOOD COUNT 3.72 10^6/ul (4.70-6.10); RED CELL DISTRIBUTION WIDTH 14.7 % (11.5-14.5)
[2018-10-27 08:28] LABS: WHITE BLOOD COUNT 11.7 10^3/ul (4.8-10.8)
[2018-10-27] MEDS: IPRATROPIUM (NEB) 0.5 MG/2.5 ML AMP HHN ×3 (08:43→17:33)
[2018-10-27] MEDS: BUDESONIDE (NEB) 0.5MG/2ML AMP NEB (08:44)
[2018-10-27 08:49] LABS: ANION GAP 12 (5-13); BLOOD UREA NITROGEN 35 mg/dl (7-20); CALCIUM 9.5 mg/dl (8.4-10.2); CARBON DIOXIDE 30 mmol/L (21-31); CHLORIDE 99 mmol/L (97-110); CREATININE 2.98 mg/dl (0.61-1.24); GLUCOSE 100 mg/dl (70-220); PHOSPHORUS 4.7 mg/dl (2.5-4.9); POTASSIUM 4.9 mmol/L (3.5-5.1); SODIUM 141 mmol/L (135-144)
[2018-10-27] MEDS: DIGOXIN 500 MCG INJ IV (10:54)
[2018-10-27] MEDS: METOPROLOL 50 MG TAB PO (12:17)
[2018-10-27] MEDS ORDERED: APIXABAN 5 MG TABLET PO (21:00)
== END 2018-10-27 19:41 | DRG 314 ==
LOC: E/R 11:17 → 6WM 15:28
PROC: 02H633Z Insertion of Infusion Device into Right Atrium, Percutaneous Approach (ICD-10-PCS; principal; 2018-10-26 14:00)
PROC: 0JH63XZ Insertion of Tunneled Vascular Access Device into Chest Subcutaneous Tissue and Fascia, Percutaneous Approach (ICD-10-PCS; 2018-10-26 14:00)
PROC: 05PYX3Z Removal of Infusion Device from Upper Vein, External Approach (ICD-10-PCS; 2018-10-26 14:00)
PROC: B513ZZA Fluoroscopy of Right Jugular Veins, Guidance (ICD-10-PCS; 2018-10-26 14:00)
DX: T82.49XA Other complication of vascular dialysis catheter, initial encounter (principal); N18.6 End stage renal disease; I12.0 Hypertensive chronic kidney disease with stage 5 chronic kidney disease or end stage renal disease; E87.0 Hyperosmolality and hypernatremia; I48.91 Unspecified atrial fibrillation; E03.9 Hypothyroidism, unspecified; N40.0 Benign prostatic hyperplasia without lower urinary tract symptoms; J44.9 Chronic obstructive pulmonary disease, unspecified; E66.9 Obesity, unspecified; Z68.37 Body mass index [BMI] 37.0-37.9, adult; E11.22 Type 2 diabetes mellitus with diabetic chronic kidney disease; Z99.2 Dependence on renal dialysis; M10.9 Gout, unspecified
CPT/HCPCS: 36415; 71045; 80048; 80053; 80061; 82550; 82553; 82962; 83036; 83735; 84100; 84439; 84443; 84484; 84560; 85025; 85610; 85730; 86706; 87340; 90935; 93005; 94640; 94664; 99285-25